=== PATIENT | female | born 1955 | race Caucasian/White ===

== ENCOUNTER 2018-06-29 06:13 | Day surgery (SDC) | payer MEDICAID ==
[~2018-06-29] VITALS: Ht 147.3 cm; Wt 31.6 kg
--- NOTE | ~2018-06-29 | OP ---
PATIENT NAME: EVELIA TOBIAS MEDICAL RECORD: [id number] :51 LOCATION:[facility] ADMISSION DATE: SURGEON: RACHAEL ASTORGA DO DATE OF OPERATION: 06/29/2018 PROCEDURE: Colonoscopy with biopsies. INDICATIONS FOR PROCEDURE: Family history positive for colon cancer in her mother and personal history of weight loss. SCOPE: Olympus video pediatric colonoscope. MEDICATIONS: Propofol 350 mg IV per anesthesia. WITHDRAWAL TIME: 22 minutes. ESTIMATED BLOOD LOSS: Minimal. COMPLICATIONS: None. FINDINGS: Informed consent was given. The patient was made comfortable with the above medication. After reaching an adequate level of sedation by slow IV push, the patient was placed on her left side. A digital rectal examination was performed and was normal. The endoscope was then advanced under direct visualization through the rectum to the cecum, confirmed by the presence of the appendiceal orifice and ileocecal valve. The endoscope was slowly withdrawn and the mucosa was carefully examined. The prep quality was good. There were no polyps visualized on today's examination. There was some nonspecific colitis located in the splenic flexure and the hepatic flexure. This was characterized by minor loss in vascularity pattern and by a few superficial ulcerations in both of these sites. There was no active bleeding, but there was some oozing from ulcers after being contacted by the endoscope with a water jet. Multiple cold forceps biopsies were taken of these ulcers from these sites to submit for histopathology. Appearances are most consistent with minimal ischemic colitis. Retroflexion was performed in the rectum with visualization of grade I internal hemorrhoids without bleeding. The endoscope was withdrawn from the patient. The patient tolerated the procedure well and there were no complications. IMPRESSION: 1. Very mild colitis located at the splenic flexure and the hepatic flexure. Appearances and locations are most consistent with minimal ischemic colitis. This also fits with the patient's history of circulatory disease. 2. Internal hemorrhoids without bleeding. PLAN AND RECOMMENDATIONS: 1. Discharge home when recovery parameters are met. 2. Follow up biopsy specimen results. 3. High fiber diet. 4. Continue current medications. 5. If this is ischemic colitis, there is no specific treatment other than treating risk factors such as dyslipidemia and abnormal blood pressures. The patient should stay hydrated. I do recommend a high fiber diet and consider supplementing diet with 1 tablespoon of Metamucil or another psyllium husk fiber daily to facilitate regular bowel movements and lubricate stools. 6. Recall colonoscopy should be performed in 5 years based on family history of OPERATIVE REPORT [id number] EVELIA TOBIAS colon cancer in the patient's mother. TRANSINT:[id number] Voice Confirmation ID: [id number] DOCUMENT ID: [id number] RACHAEL ASTORGA DO at 0721 CC: [id number] DICTATION DATE: 06/29/18909 JAVA DESIGNER: 06/29/18 1044 [facility] 06/29/18 [facility] [address] [place] [address]
[2018-06-29 06:43] LABS: HEMATOCRIT 47.5 % (36.0-48.0); HEMOGLOBIN 17.5 g/dL (12-16); MCH 37.8 pg (26.0-34.0); MCHC 36.8 g/dL (31.0-37.0); MCV 102.6 fL (80.0-100.0); MEAN PLATELET VOLUME 8.8 fL (7.4-10.4); RBC 4.63 10x6/uL (4.00-5.40); RDW 13.1 % (11.5-14.5); WBC 9.2 10x3/uL (4.8-10.8)
[2018-06-29] MEDS ORDERED: NORVASC10 MG PO (07:16)
[2018-06-29] MEDS ORDERED: PLAVIX75 MG PO (07:17)
[2018-06-29] MEDS ORDERED: KLOR-CON 1010 MEQ PO (07:18)
[2018-06-29] MEDS ORDERED: SEEBRI NEOHA15.6 MCG INH (07:20)
[2018-06-29] MEDS ORDERED: PROAIR HFA8.5 GM INH (07:21)
[2018-06-29] MEDS ORDERED: K-DUR20 MEQ PO (07:21)
[2018-06-29 07:35] VITALS: Ht 147.3 cm; Wt 31.6 kg
== END 2018-06-29 10:05 | disposition home or self-care (01) ==
LOC: D.OPS 06:13
PROVIDERS: Anesthesiology
DX: K52.89 Other specified noninfective gastroenteritis and colitis (principal); K63.89 Other specified diseases of intestine; Z01.812 Encounter for preprocedural laboratory examination; Z80.0 Family history of malignant neoplasm of digestive organs

== ENCOUNTER 2018-08-01 05:34 | Day surgery (SDC) | payer MEDICARE ==
[~2018-08-01] VITALS: Ht 147.3 cm; Wt 31.8 kg
--- NOTE | ~2018-08-01 | OP ---
PATIENT NAME: EVELIA TOBIAS MEDICAL RECORD: [id number] :51 LOCATION:[facility] ADMISSION DATE: SURGEON: RACHAEL ASTORGA DO DATE OF OPERATION: 08/01/2018 PROCEDURE: EGD with balloon dilation and biopsies. INDICATIONS FOR PROCEDURE: Epigastric pain, nausea and vomiting, abnormal weight loss. SCOPE: Olympus video gastroscope. MEDICATIONS: Propofol 150 mg IV per anesthesia. ESTIMATED BLOOD LOSS: Minimal. COMPLICATIONS: None. FINDINGS: Informed consent was given. The patient was made comfortable with the above medication. After reaching an adequate level of sedation by slow IV push, the patient was placed on her left side. The endoscope was advanced under direct visualization through the mouth to the third portion of the duodenum with ease. The upper, middle, and lower thirds of the esophagus appeared normal. At the GE junction, there was a mild, nonobstructing Schatzki ring, which was dilated to 20 mm using a CRE balloon through the endoscope. The endoscope was advanced beyond the GE junction into the stomach and retroflexed to view the cardia, where a very small sliding hiatal hernia was present. The fundus and body of the stomach appeared normal. In the antrum and prepyloric regions of the stomach, there was patchy erythema and granularity consistent with gastritis. Random biopsies were taken to submit for histology and to rule out the presence of H. pylori. The endoscope was advanced beyond the pylorus into the duodenal bulb. It was passed down to the third portion of the duodenum. The entire examined duodenum appeared normal, but small cold forceps biopsies were taken randomly to submit for histopathology. The endoscope was then withdrawn from the patient. The patient tolerated the procedure well and there were no complications. IMPRESSION: 1. Mild, nonobstructing Schatzki ring located at the GE junction. This was dilated to 20 mm successfully using a CRE balloon. 2. Small sliding hiatal hernia. 3. Gastritis. Biopsies pending. PLAN AND RECOMMENDATIONS: 1. Discharge home when recovery parameters are met. 2. Follow up biopsy specimen results. 3. Continue current diet. 4. Continue current medications. 5. We will add Pepcid 40 mg daily times 8 weeks. 6. Gastric emptying scan to evaluate her symptoms including nausea, vomiting, epigastric pain provoked with eating, and feeling full easily. TRANSINT:[id number] Voice Confirmation ID: [id number] DOCUMENT ID: [id number] OPERATIVE REPORT [id number] EVELIA TOBIAS NATHAN A DO at 0816 CC: [id number] DICTATION DATE: 08/01/18 0804 AUTO REPAIR TECHNICIAN: 08/01/18 1245 [facility] 08/01/18 [place] [id number] [place] [id number]
[~2018-08-01 05:34] MED LIST: K-DUR20 MEQ PO; KLOR-CON 1010 MEQ PO; NORVASC10 MG PO; PLAVIX75 MG PO; PROAIR HFA8.5 GM INH; SEEBRI NEOHA15.6 MCG INH
[2018-08-01 06:03] LABS: BASOPHILS 0.2 % (0-2); EOSINOPHILS 1.1 % (0-7); HEMATOCRIT 43.5 % (36.0-48.0); HEMOGLOBIN 15.9 g/dL (12-16); IMMATURE GRANULOCYTES 0.6 % (0-5); LYMPHOCYTES 25.3 % (15-50); MCH 37.3 pg (26.0-34.0); MCHC 36.6 g/dL (31.0-37.0); MCV 102.1 fL (80.0-100.0); MEAN PLATELET VOLUME 8.4 fL (7.4-10.4); MONOCYTES 11.1 % (2-11); NEUTROPHILS 61.7 % (40-80); PLATELET COUNT 387 10x3/uL (130-400); RBC 4.26 10x6/uL (4.00-5.40); RDW 13.3 % (11.5-14.5); WBC 10.1 10x3/uL (4.8-10.8)
[2018-08-01 06:17] LABS: CALC OSMOLALITY 273 mosm/kg (275-300); CALCIUM 8.9 mg/dL (8.5-10.1); CARBON DIOXIDE 30.3 mmol/L (21.0-32.0); CHLORIDE - SERUM 99 mmol/L (98-107); CREATININE - SERUM 0.5 mg/dL (0.6-1.3); GLUCOSE 96 mg/dL (74-106); POTASSIUM - SERUM 3.3 mmol/L (3.5-5.1); SODIUM 137 mmol/L (136-145); UREA NITROGEN 13 mg/dL (7-18); eGFR NON AFRICAN AMERICAN > 90 mL/min (90-120)
[2018-08-01 06:35] VITALS: Ht 147.3 cm; Wt 31.8 kg
== END 2018-08-01 08:55 | disposition home or self-care (01) ==
LOC: D.OPS 05:34
PROVIDERS: Anesthesiology
DX: K22.2 Esophageal obstruction (principal); K44.9 Diaphragmatic hernia without obstruction or gangrene; K29.70 Gastritis, unspecified, without bleeding; Z01.812 Encounter for preprocedural laboratory examination

== ENCOUNTER → 2018-08-05 10:58 | Outpatient (CLI) | payer MEDICARE ==
[2018-08-01 06:35] VITALS: BMI 14.6
== END | disposition home or self-care (01) ==
LOC: D.NM 10:58
DX: R11.2 Nausea with vomiting, unspecified (principal); R10.13 Epigastric pain

== ENCOUNTER 2018-12-07 21:16 | Inpatient (IN) | payer MEDICARE ==
[~2018-12-07] VITALS: Ht 147.3 cm; Wt 31.8 kg
[2018-12-07] MEDS ORDERED: PEPCID AC20 MG PO (21:26)
[2018-12-07 22:18] LABS: BASOPHILS 0.2 % (0-2); EOSINOPHILS 0.9 % (0-7); HEMATOCRIT 27.7 % (36.0-48.0); HEMOGLOBIN 9.4 g/dL (12-16); IMMATURE GRANULOCYTES 0.5 % (0-5); LYMPHOCYTES 26.1 % (15-50); MCH 35.7 pg (26.0-34.0); MCHC 33.9 g/dL (31.0-37.0); MCV 105.3 fL (80.0-100.0); MEAN PLATELET VOLUME 8.5 fL (7.4-10.4); NEUTROPHILS 61.3 % (40-80); RBC 2.63 10x6/uL (4.00-5.40); WBC 6.5 10x3/uL (4.8-10.8)
[2018-12-07 22:23] LABS: APTT 24.8 SECONDS (22.8-39.4); INR 1.03 (0.85-1.17)
[2018-12-07 22:34] LABS: ALBUMIN 2.9 g/dL (3.4-5.0); ALKALINE PHOSPHATASE 51 U/L (46-116); ALT (SGPT) 26 U/L (10-68); AMYLASE - SERUM 21 U/L (25-115); BILIRUBIN - TOTAL 0.28 mg/dL (0.2-1.3); CALCIUM 7.9 mg/dL (8.5-10.1); CARBON DIOXIDE 24.3 mmol/L (21.0-32.0); CHLORIDE - SERUM 100 mmol/L (98-107); CREATININE - SERUM 0.3 mg/dL (0.6-1.3); LIPASE 105 U/L (73-393); PROTEIN - SERUM 5.9 g/dL (6.4-8.2); SODIUM 139 mmol/L (136-145); UREA NITROGEN 6 mg/dL (7-18); eGFR NON AFRICAN AMERICAN > 90 mL/min (90-120)
[2018-12-07 22:36] LABS: PLATELET COUNT 286 10x3/uL (130-400)
[2018-12-07 22:37] LABS: CALC OSMOLALITY 273 mosm/kg (275-300); GLUCOSE 55 mg/dL (74-106)
[2018-12-07 22:38] LABS: POTASSIUM - SERUM 2.9 mmol/L (3.5-5.1)
--- NOTE | 2018-12-07 23:43 | NUR ---
[place] STOP TIME 5334 WHEN PT TRANSFERED TO ICU
[2018-12-08] VITALS (22 sets, daily range): BP systolic 113–140; BP diastolic 50–78; Ht 147.3 cm; Wt 31.8 kg
--- NOTE | 2018-12-08 00:45 | NUR ---
DR. ASTORGA NOTIFIED OF CONSULT, QUESTIONS ANSWERED AND ORDERS REC'D.
--- NOTE | 2018-12-08 01:00 | NUR ---
CONTINUES RESTING WITH EYES CLOSED. NO SIGNS OF DISTRESS AT THIS TIME. CONTINUE WITH PLAN OF CARE.
--- NOTE | 2018-12-08 03:00 | NUR ---
UP TO BEDSIDE COMMODE.VOIDED DARK YELLOW URINE. DENIES ANY COMPLAINT AT THIS TIME. CALL LIGHT IN REACH.
--- NOTE | 2018-12-08 04:23 | NUR ---
UP TO BEDSIDE COMMODE WITH MINIMAL ASSITANCE, VSS. DENIES FURTHER NEEDS AT THIS TIME. CPOC.
[2018-12-08 04:39] LABS: BASOPHILS 0.2 % (0-2); EOSINOPHILS 0.9 % (0-7); HEMATOCRIT 24.5 % (36.0-48.0); HEMOGLOBIN 8.5 g/dL (12-16); IMMATURE GRANULOCYTES 0.4 % (0-5); LYMPHOCYTES 28.4 % (15-50); MCH 36.5 pg (26.0-34.0); MCHC 34.7 g/dL (31.0-37.0); MCV 105.2 fL (80.0-100.0); MEAN PLATELET VOLUME 8.6 fL (7.4-10.4); MONOCYTES 11.7 % (2-11); NEUTROPHILS 58.4 % (40-80); PLATELET COUNT 263 10x3/uL (130-400); RBC 2.33 10x6/uL (4.00-5.40); RDW 12.9 % (11.5-14.5); WBC 5.4 10x3/uL (4.8-10.8)
--- NOTE | 2018-12-08 05:00 | NUR ---
PRBC INFUSION INITIATED, NO S/S OF REACTION. VSS, PT AOX4, WITH NO COMPLAINTS AT THIS TIME. REPOSITIONS SELF INDEPENDENTLY. DENIES NEEDS. CPOC.
--- NOTE | 2018-12-08 05:00 | NUR ---
AWAKE AND ALERT. SITTING UP IN BED WATCHING TV. DENIES ANY COMPLAINTS AT THIS TIME. NO SIGNS OF DISTRESS OBSERVED AT THIS TIME. CONTINUE WITH PLAN OF CARE.
[2018-12-08 05:06] LABS: ALKALINE PHOSPHATASE 47 U/L (46-116); ALT (SGPT) 20 U/L (10-68); BILIRUBIN - TOTAL 0.26 mg/dL (0.2-1.3); CALCIUM 7.4 mg/dL (8.5-10.1); CARBON DIOXIDE 21.2 mmol/L (21.0-32.0); CHLORIDE - SERUM 101 mmol/L (98-107); CREATININE - SERUM 0.3 mg/dL (0.6-1.3); PROTEIN - SERUM 5.3 g/dL (6.4-8.2); SODIUM 138 mmol/L (136-145); UREA NITROGEN 5 mg/dL (7-18); eGFR NON AFRICAN AMERICAN > 90 mL/min (90-120)
[2018-12-08 05:12] LABS: ALBUMIN 2.5 g/dL (3.4-5.0)
[2018-12-08 05:23] LABS: CALC OSMOLALITY 269 mosm/kg (275-300); GLUCOSE 49 mg/dL (74-106)
[2018-12-08 05:24] LABS: POTASSIUM - SERUM 2.7 mmol/L (3.5-5.1)
--- NOTE | 2018-12-08 07:00 | NUR ---
AWAKE AND ALERT. SITTING UP IN BED, WATCHING TV. DENIES COMPLAINT AT THIS TIME. NO SIGNS OF DISTRESS OBSERVED. CONTINUE WITH PLAN OF CARE.
--- NOTE | 2018-12-08 07:00 | NUR ---
PATIENT RESTING STABLE IN BED WITH PRBC CURRENTLY INFUSING AT 150ML/HR VIA LEFT WRIST AND PROTONIX DRIP VIA RIGHT WRIST PIV. LUNG DONOVAN CLEAR. NSR. VSS. PATIENT AWAKE ALERT AND ORIENTED X 4. 1ST BAG OF KCL RIDER 10 MEQ INFUSION COMPLETED. WILL CONTINUE TO MONITOR
--- NOTE | 2018-12-08 08:13 | NUR ---
SPOKE TO DR. FRAZIER ON PHONE ABOUT kCL LEVEL. STATED IT IS OKAY TO GIVE PO K+ SINCE SHE CANT HANDLE THE IV kCL RIDER ANY FASTER THAN 25ML/HR AND NEEDS 6 BAGS.
--- NOTE | 2018-12-08 08:16 | NUR ---
BLOOD TRANSFUSION COMPLETED AT THIS TIME. VSS.
--- NOTE | 2018-12-08 09:15 | NUR ---
ADMINISTERED 20 MEQ KDUR TABLET FOR LOW K+ PER PROTOCOL AND SCHEDULED KDUR TABLET WELL NORVASC SINCE DR. FRAZIER SAID OKAY TO REPLACE k+ ORALLY ON NPO STATUS. BG IS LOW 49 THIS MORNING. GAVE 3 PACKS SUGAR IN WATER WITH PILLS
--- NOTE | 2018-12-08 10:05 | NUR ---
OBTAINED CONSENT FORMS FOR EGD LATER TODAY. ALLOWED FAMILY TO COME IN AND VISIT WITH PATIENT.
--- NOTE | 2018-12-08 12:00 | NUR ---
PATIENT RESTING IN BED C STABLE VS. NO COMPLAINTS.
--- NOTE | 2018-12-08 13:33 | NUR ---
PATIENT AMBULATING UP AND DOWN UNIT PULLING IV POLE WITH HER.
--- NOTE | 2018-12-08 14:02 | NUR ---
OBTAINED CONSENT FOR ANESTHESIA. PT IS STABLE.
--- NOTE | 2018-12-08 16:00 | NUR ---
EGD BY DR. FRAZIER COMPLETED AT THIS TIME. 150 MCG PROPOFOL USED FOR ANESTHESIA. FINDINGS WERE 2 GASTRIC ULCERS MILDLY BLEEDING WHICH WERE INJECTED WITH 1/2 ML EPINEPHRINE EACH. PATIENT RECOVERED WITH STABLE VS AND IS AWAKE AND ALERT. WILL CONTINUE TO MONITOR
--- NOTE | 2018-12-08 17:03 | NUR ---
CALLED DIETARY FOR CLEAR LIQUID DIET TRAY FOR PATIENT.
--- NOTE | 2018-12-08 19:00 | NUR ---
AWAKE AND ALERT. SITTING UP IN BED WATCHING TV. IV RT WRIST INFILTRATED, REDDENED, PAINFUL TO TOUCH, UNABLE TO FLUSH. IV RT WRIST DISCONTINUED AT THIS TIME WITH CATHETER INTACT, PRESSURE HELD, DRSG APPLIED. DENIES ANY FURTHER COMPLAINTS AT THIS TIME.
--- NOTE | 2018-12-08 21:00 | NUR ---
AWAKE AND ALERT. SITTING UP IN BED WATCHING TV. DENIES PAIN OR DISCOMFORT. CONTINUE PLAN OF CARE
--- NOTE | 2018-12-08 23:00 | NUR ---
RESTING WITH EYES CLOSED. CONTINUE WITH PLAN OF CARE.
[2018-12-09] VITALS (18 sets, daily range): BP systolic 115–163; BP diastolic 55–85
[2018-12-09 03:23] LABS: BASOPHILS 0.2 % (0-2); EOSINOPHILS 1.7 % (0-7); IMMATURE GRANULOCYTES 0.2 % (0-5); LYMPHOCYTES 26.1 % (15-50); MCH 33.8 pg (26.0-34.0); MCHC 34.8 g/dL (31.0-37.0); MEAN PLATELET VOLUME 8.5 fL (7.4-10.4); MONOCYTES 14.7 % (2-11); NEUTROPHILS 57.1 % (40-80); PLATELET COUNT 247 10x3/uL (130-400); RDW 18.5 % (11.5-14.5); WBC 5.4 10x3/uL (4.8-10.8)
[2018-12-09 03:26] LABS: HEMATOCRIT 32.8 % (36.0-48.0); HEMOGLOBIN 11.4 g/dL (12-16); MCV 97.3 fL (80.0-100.0); RBC 3.37 10x6/uL (4.00-5.40)
[2018-12-09 03:41] LABS: ALBUMIN 2.5 g/dL (3.4-5.0); ALKALINE PHOSPHATASE 46 U/L (46-116); CALCIUM 7.7 mg/dL (8.5-10.1); CARBON DIOXIDE 23.7 mmol/L (21.0-32.0); CHLORIDE - SERUM 101 mmol/L (98-107); CREATININE - SERUM 0.3 mg/dL (0.6-1.3); MAGNESIUM - SERUM 1.1 mg/dL (1.8-2.4); PROTEIN - SERUM 5.4 g/dL (6.4-8.2); SODIUM 136 mmol/L (136-145); eGFR NON AFRICAN AMERICAN > 90 mL/min (90-120)
[2018-12-09 03:44] LABS: ALT (SGPT) 26 U/L (10-68); CALC OSMOLALITY 265 mosm/kg (275-300); GLUCOSE 66 mg/dL (74-106); UREA NITROGEN 1 mg/dL (7-18)
--- NOTE | 2018-12-09 07:00 | NUR ---
PATIENT RESTING IN BED C CALL ARTEAGA IN REACH. NS INFUSING AT 125, BUMPED DOWN TO 75 SINCE NO LONGER NPO AND LOW BUN/CR. NO COMPLAINTS OF PAIN. VSS. WILL CONTINUE TO MONITOR
--- NOTE | 2018-12-09 09:00 | NUR ---
PT RESTING INB ED AWAKE ALERT AND ORIENTED. CHANGED PINK PAD PER REQUEST. NS INFUSING AT 75ML/HR VIA LEFT WRIST. WILL CONTINUE TO MONITOR
[2018-12-09 09:13] LABS: HEMATOCRIT 30.8 % (36.0-48.0); HEMOGLOBIN 10.9 g/dL (12-16)
--- NOTE | 2018-12-09 09:50 | NUR ---
PATIENT HAD LOOSE BLACK BM ON BSC. CLEANED SELF. NURSE EMPTIED BASIN. WILL REPORT MELENA TO DR. FRAZIER.
--- NOTE | 2018-12-09 11:30 | NUR ---
PATIENT HAD ANOTHER LOOSE DARK BM--COFFE GROUND LOOKING. VSS. NO COMPLAINTS. ADMINISTERED SECOND OF 4 MAGNESIUM DOSES FOR ELECTROLYTE REPLACEMENT PROTOCOL.
[2018-12-09 12:46] LABS: HEMATOCRIT 36.9 % (36.0-48.0); HEMOGLOBIN 13.1 g/dL (12-16)
--- NOTE | 2018-12-09 13:12 | NUR ---
CALLED DR. CLAIRE SCHULTZ ABOUT POTENTIAL TRANSFER. NO ANSWER OR VOICEMAIL BOX
[2018-12-09 16:10] LABS: HEMATOCRIT 34.2 % (36.0-48.0)
--- NOTE | 2018-12-09 16:15 | NUR ---
ADMINISTERED PRN IMMODIUM AND 3RD OF 4 DOSES OF MAGNESIUM PER ELEC PROTOCOL. REPORT GIVEN TO CHARLOTTE SQUIRES ON [facility] FOR TRANSFER.
--- NOTE | 2018-12-09 16:15 | NUR ---
RECEIVED TO ROOM 2203 VIA FROM ICU. A/O X3. NO C/O AT THIS TIME. DENIES NEEDS.
--- NOTE | 2018-12-09 16:30 | NUR ---
PATIENT TAKEN DOWN TO 2203 VIA WHEEL CHAIR AND HANDED OFF TO CHARLOTTE SQUIRES.
--- NOTE | 2018-12-09 16:33 | NUR ---
admnistered prn immodium and 3rd dose of magnesium per elec protocol. also gave report to Shelly PORTER on med surge for transfer orders.
--- NOTE | 2018-12-09 19:42 | MORECARE ---
CASE MANAGEMENT DISCHARGE SUMMARY PATIENT: EVELIA TOBIAS UNIT: [id number] ADM DATE: 12/07/18 AGE: 63 : 53 SEX: F ROOM/BED: D.2203 AUTHOR: HORACE,DOC PHYSICIAN: REFERRING PHYSICIAN: ARGELIA SAENZ MD DATE OF SERVICE: 12/09/18 Discharge Plan Patient Name: EVELIA TOBIAS Facility: [facility]:[place] : 1955 Planned Disposition: Home Anticipated Discharge Date: Discharge Date: Expected LOS: Initial Reviewer: [email or web address] Initial Review Date: 12/09/2018 Generated: 12/09/18 8:42 pm Comments DCP- Discharge Planning Updated by [email or web address]: Alyssa Roca on 12/09/18 6:[address] Patient Name: EVELIA TOBIAS Admission Status: ER Accout number: [id number] Admission Date: 12-07-2018 : 1955 Admission Diagnosis:GASTROINTESTINAL HEMORRHAGE, UNSPECIFIED Attending: ARGELIA SAENZ Current LOS: 2 Anticipated DC Date: Planned Disposition: Home Primary Insurance: MEDICARE A & B Discharge Planning Comments: CM met with patient at bedside. Patient states she live at home with her brother and son. She plans to return to their home upon discharge. Patient denies any discharge needs at this time. CM will continue to follow and assist as needed with discharge planning / needs. Rural Route Carrier: Alyssa Roca DCPIA - Discharge Planning Initial Assessment Updated by [email or web address]: Alyssa Roca on 12/09/18 7:40 pm * Is the patient Alert and Oriented? Yes * How many steps to enter\exit or inside your home? * PCP MARIA EUGENIA TONY * Pharmacy [facility] * Preadmission Environment Home with Family * ADLs Independent * Equipment None * List name and contact numbers for known caregivers / representatives who currently or will assist patient after discharge: MARLENE PRADO - - [phone] * Verbal permission to speak to the caregivers and representatives has been obtained from the patient. N/A * Community resources currently utilized None * Additional services required to return to the preadmission environment? No * Can the patient safely return to the preadmission environment? Yes * Has this patient been hospitalized within the prior 30 days at any hospital? No Patient Name: JATINDER JANUARY Page [id number] at 1942 All edits/amendments must be made on the electronic document DICTATION DATE: 12/09/181940 DIE CASTER: JOHANNA 12/09/181940 RPT#: [id number] DC DATE: STATUS: ADM IN [facility] [address] [place] [address] END OF REPORT
--- NOTE | 2018-12-09 19:50 | NUR ---
THE PATIENT WAS LYING IN BED AND WATCHING TELEVISION WHEN STAFF ENTERED HER ROOM. BED IN LOW POSITION WITH SIDERAILS X2 AND CALL LIGHT WITHIN REACH. THE PATIENT DEMONSTRATES APPROPRIATE USE OF A CALLL LIGHT. THE PATIENT APPEARS COMFORTABLE WITH NO QUESTIONS OR COCNERNS AT THIS TIME.
[2018-12-09 19:56] LABS: HEMATOCRIT 34.3 % (36.0-48.0); HEMOGLOBIN 12.1 g/dL (12-16)
--- NOTE | 2018-12-10 02:28 | NUR ---
THE PATIENT IS AWAKE QAND WATCHING TELEVISION. SHE APPEARS COMFORTABLE AND AHS NO QUESTIONS OR CONCERNS.
[2018-12-10 04:00] VITALS: BP 106/59
[2018-12-10 06:09] LABS: BASOPHILS 0.2 % (0-2); EOSINOPHILS 1.7 % (0-7); HEMATOCRIT 34.2 % (36.0-48.0); HEMOGLOBIN 11.7 g/dL (12-16); IMMATURE GRANULOCYTES 0.4 % (0-5); LYMPHOCYTES 27.7 % (15-50); MCH 33.8 pg (26.0-34.0); MCHC 34.2 g/dL (31.0-37.0); MCV 98.8 fL (80.0-100.0); MONOCYTES 14.2 % (2-11); NEUTROPHILS 55.8 % (40-80); PLATELET COUNT 289 10x3/uL (130-400); RBC 3.46 10x6/uL (4.00-5.40); RDW 18.1 % (11.5-14.5); WBC 5.4 10x3/uL (4.8-10.8)
[2018-12-10 06:46] LABS: ALBUMIN 2.5 g/dL (3.4-5.0); ALKALINE PHOSPHATASE 50 U/L (46-116); ALT (SGPT) 21 U/L (10-68); BILIRUBIN - TOTAL 0.25 mg/dL (0.2-1.3); CARBON DIOXIDE 27.1 mmol/L (21.0-32.0); CHLORIDE - SERUM 101 mmol/L (98-107); GLUCOSE 96 mg/dL (74-106); PROTEIN - SERUM 5.6 g/dL (6.4-8.2); SODIUM 137 mmol/L (136-145)
[2018-12-10 06:51] LABS: CALC OSMOLALITY 269 mosm/kg (275-300); CREATININE - SERUM 0.4 mg/dL (0.6-1.3); MAGNESIUM - SERUM 1.5 mg/dL (1.8-2.4); UREA NITROGEN 2 mg/dL (7-18)
[2018-12-10 06:52] LABS: eGFR NON AFRICAN AMERICAN > 90 mL/min (90-120)
[2018-12-10 06:53] LABS: POTASSIUM - SERUM 2.7 mmol/L (3.5-5.1)
[2018-12-10 08:23] LABS: HEMATOCRIT 32.4 % (36.0-48.0); HEMOGLOBIN 11.3 g/dL (12-16)
[2018-12-10 08:29] LABS: ANION GAP 9.3 mmol/L (8-16); CARBON DIOXIDE 30.7 mmol/L (21.0-32.0)
[2018-12-10 08:39] VITALS: BP 142/75
[2018-12-10 12:00] VITALS: BP 128/73
[2018-12-10 12:56] LABS: HEMATOCRIT 35.2 % (36.0-48.0); HEMOGLOBIN 12.2 g/dL (12-16)
[2018-12-10] MEDS ORDERED: CARAFATE1 G PO (13:48)
[2018-12-10] MEDS ORDERED: FLORAJEN3 CAPS460 MG PO (13:48)
[2018-12-10] MEDS ORDERED: LOPERAMIDE HCL2 MG PO (13:49)
[2018-12-10] MEDS ORDERED: PROTONIX40 MG PO (13:49)
[2018-12-10 16:00] VITALS: BP 146/71
--- NOTE | 2018-12-10 18:01 | NUR ---
PATIENT IV DC/D WITH DISCHARGE INSTRUCTIONS GIVEN AND MEDICATIONS CALLED TO [facility]. STABLE AT TIME OF DEPARTURE AND VERBALIZED UNDERSTANDING OF DISCHAGE INSTRUCTIONS.
--- NOTE | 2018-12-12 11:59 | MORECARE ---
CASE MANAGEMENT DISCHARGE SUMMARY PATIENT: EVELIA TOBIAS UNIT: [id number] ADM DATE: 12/07/18 AGE: 63 : 53 SEX: F ROOM/BED: D.2203 AUTHOR: HORACE,DOC PHYSICIAN: REFERRING PHYSICIAN: ARGELIA SAENZ MD DATE OF SERVICE: 12/12/18 Discharge Plan Patient Name: EVELIA TOBIAS Facility: [facility]:[place] : 1955 Planned Disposition: Home Anticipated Discharge Date: Discharge Date: 12/10/2018 Expected LOS: 0 Initial Reviewer: [email or web address] Initial Review Date: 12/09/2018 Generated: 12/12/18 12:59 pm Comments DCP- Discharge Planning Updated by [email or web address]: Alyssa Roca on 12/09/18 6:[address] Patient Name: EVELIA TOBIAS Admission Status: ER Accout number: [id number] Admission Date: 12-07-2018 : 1955 Admission Diagnosis:GASTROINTESTINAL HEMORRHAGE, UNSPECIFIED Attending: ARGELIA SAENZ Current LOS: 2 Anticipated DC Date: Planned Disposition: Home Primary Insurance: MEDICARE A & B Discharge Planning Comments: CM met with patient at bedside. Patient states she live at home with her brother and son. She plans to return to their home upon discharge. Patient denies any discharge needs at this time. CM will continue to follow and assist as needed with discharge planning / needs. Streetcar Dispatcher: Alyssa Roca DCPIA - Discharge Planning Initial Assessment Updated by [email or web address]: Alyssa Roca on 12/09/18 7:40 pm * Is the patient Alert and Oriented? Yes * How many steps to enter\exit or inside your home? * PCP MARIA EUGENIA TONY * Pharmacy [facility] * Preadmission Environment Home with Family * ADLs Independent * Equipment None * List name and contact numbers for known caregivers / representatives who currently or will assist patient after discharge: MARLENE PRADO - - [phone] * Verbal permission to speak to the caregivers and representatives has been obtained from the patient. N/A * Community resources currently utilized None * Additional services required to return to the preadmission environment? No * Can the patient safely return to the preadmission environment? Yes * Has this patient been hospitalized within the prior 30 days at any hospital? No Last DP export: 12/09/18 6:42 pm Patient Name: JATINDER JANUARY Page [phone] at 1159 All edits/amendments must be made on the electronic document DICTATION DATE: 12/12/181158 VETERINARY TECHNICIAN ASSISTANT: JOHANNA 12/12/18 1159 RPT#: [id number] DC DATE:12/10/18 STATUS: DIS IN [facility] [address] [place] [address] END OF REPORT
== END 2018-12-10 18:03 | disposition home or self-care (01) | DRG 377 ==
LOC: D.ER 21:16 → D.ICU 22:02 → D.MS 22:02
PROVIDERS: Family Medicine; Internal Medicine Gastroenterology; ADMIT Family Medicine
PROC: 0W3P8ZZ Control Bleeding in Gastrointestinal Tract, Via Natural or Artificial Opening Endoscopic (ICD-10-PCS; principal; 2018-12-08 16:15)
DX: K25.4 Chronic or unspecified gastric ulcer with hemorrhage (principal); E43 Unspecified severe protein-calorie malnutrition; D62 Acute posthemorrhagic anemia; N39.0 Urinary tract infection, site not specified; Z68.1 Body mass index [BMI] 19.9 or less, adult; J44.9 Chronic obstructive pulmonary disease, unspecified; I10 Essential (primary) hypertension; I73.9 Peripheral vascular disease, unspecified; E87.6 Hypokalemia; F17.200 Nicotine dependence, unspecified, uncomplicated

== ENCOUNTER 2019-08-29 14:23 | Inpatient (IN) | payer MEDICARE ==
[~2019-08-29] VITALS: Ht 147.3 cm; Wt 26.7 kg
[~2019-08-29 14:23] MED LIST changes: +CARAFATE1 G PO; +FLORAJEN3 CAPS460 MG PO; +LOPERAMIDE HCL2 MG PO; +PEPCID AC20 MG PO; +PROTONIX40 MG PO
[2019-08-29] MEDS ORDERED: BAYER CHEWABLE81 MG PO (18:09)
[2019-08-29] MEDS ORDERED: LANOXIN125 MCG PO (18:10)
[2019-08-29] MEDS ORDERED: VITAMIN B-121000 MCG PO (18:10)
[2019-08-29] MEDS ORDERED: CARDIZEM CD300 MG PO (18:11)
[2019-08-29] MEDS ORDERED: LOVASTATIN20 MG PO (18:11)
[2019-08-29] MEDS ORDERED: PROTONIX40 MG PO (18:12)
[2019-08-29] MEDS ORDERED: CHANTIX0.5 MG PO (18:12)
[2019-08-29] MEDS ORDERED: K-DUR20 MEQ PO (18:12)
[2019-08-29] MEDS ORDERED: VITAMIN D2000 UNIT PO (18:17)
--- NOTE | 2019-08-29 20:00 | NUR ---
PATIENT RECEIVED SITTING UP IN BED. VITAL SIGNS DONE. BED LOW. CALL LIGHT WITHIN REACH. WILL CONTINUE TO MONITOR.
--- NOTE | 2019-08-29 20:23 | NUR ---
PATIENT REFUSD RENAN. DID NOT TAKE AT OTHER HOSPITAL. TYLENOL 650 MG GIVEN FOR PAIN LEVEL 5. CALL LIGHT WITHIN REACH. WILL CONTINUE TO MONITOR.
[2019-08-29 21:05] VITALS: BP 169/70
[2019-08-29 22:36] VITALS: BP 169/70; BMI 14.2
--- NOTE | 2019-08-30 04:17 | NUR ---
PATIENT EYES CLOSED. RESPIRATIONS 18 & EVEN. BED LOW. CALL LIGHT WITHIN REACH. WILL CONTINUE TO MONITOR.
[2019-08-30 06:13] LABS: BASOPHILS 0.3 % (0-2); EOSINOPHILS 9.2 % (0-7); HEMATOCRIT 32.5 % (36.0-48.0); HEMOGLOBIN 10.4 g/dL (12-16); IMMATURE GRANULOCYTES 0.4 % (0-5); LYMPHOCYTES 15.3 % (15-50); MONOCYTES 8.5 % (2-11); NEUTROPHILS 66.3 % (40-80); RBC 3.35 10x6/uL (4.00-5.40); WBC 7.7 10x3/uL (4.8-10.8)
[2019-08-30 06:31] LABS: PLATELET COUNT 512 10x3/uL (130-400)
[2019-08-30 07:28] LABS: CALC OSMOLALITY 281 mosm/kg (275-300); CALCIUM 9.2 mg/dL (8.5-10.1); CARBON DIOXIDE 26.1 mmol/L (21.0-32.0); CHLORIDE - SERUM 103 mmol/L (98-107); CREATININE - SERUM 0.4 mg/dL (0.6-1.3); GLUCOSE 95 mg/dL (74-106); POTASSIUM - SERUM 3.9 mmol/L (3.5-5.1); SODIUM 141 mmol/L (136-145); UREA NITROGEN 14 mg/dL (7-18); eGFR NON AFRICAN AMERICAN > 90 mL/min (90-120)
--- NOTE | 2019-08-30 07:54 | NUR ---
ALERT AND ORIENTED. EATING BREAKFAST. NO DISTRESS NOTED. CL IN REACH.
[2019-08-30 08:16] VITALS: BP 136/67
--- NOTE | 2019-08-30 13:41 | NUR ---
PARTICIPATED IN THERAPY THIS AM. RESTING AT THIS TIME WITH CL IN REACH.
[2019-08-30 15:07] VITALS: Ht 147.3 cm; Wt 26.7 kg
--- NOTE | 2019-08-30 20:00 | NUR ---
PATIENT RECEIVED LAYING IN BED. ASSESSMENT & VITAL SIGNS DONE. BED LOW. CALL LIGHT WITHIN REACH. WILL CONTINUE TO MONITOR.
--- NOTE | 2019-08-30 21:00 | NUR ---
PATIENT SPOKE WITH THIS NURSE ABOUT LEAVING. PATIENT TOLD THAT PATIENT HAS TO BE IN REHAB FOR 72 HOURS FOR INSURANCE TO PAY. PATIENT UNDERSTOOD. CALL LIGTH WITHIN REACH. WILL CONTINUE TO MONITOR.
[2019-08-30 21:20] VITALS: BP 150/61
--- NOTE | 2019-08-31 03:50 | NUR ---
PT LYING IN BED ON LEFT SIDE EYES CLOSED RESTING. RR EVEN AND UNLABORED. CL IN REACH
--- NOTE | 2019-08-31 04:27 | NUR ---
I have reviewed this patient and I concur with the Shift Assessment completed by the Licensed Practical Nurse today this shift.
[2019-08-31 08:00] VITALS: BP 188/91
--- NOTE | 2019-08-31 09:40 | NUR ---
PATIENT IS ALERT/ORIENT. HAS HAD THERAPY FOR FOURTY FIVE MINUTES. PATIENT TALKED TO SAMREEN. PATIENT TO BE DISCHARGED HOME TODAY
--- NOTE | 2019-08-31 11:19 | NUR ---
PATIENT DISCHARGING HOME TODAY WITH FAMILY. PATIENT HAS DECLINED TO REMAIN IN REHAB STATING "THIS IS NOT WHAT SHE WAS TOLD IT WAS". PATIENT HAS DECLINED HOME HEALTH AND ANY DME NEEDS AT THIS TIME. A COPY OF HER DISCHARGE PLAN FROM [facility] GIVEN TO PATIENT AND HER APPOINTMENTS. MATT ATKINS APRN 09/07/19 @ 3:00, HILDA BAUER 10/19/19 @ 9:00, DR. MARIA EUGENIA ACE 11/07/2019 @ 9:30. PATIENT CHOICE FORM (HAND OUT GIVEN ) AND IMFM FORMS SIGNED, COPY GIVEN TO PATIENT AND FILED IN CHART. DISCHARGE INSTRUCTIONS WITH MEDICATIONS FAXED TO PCP AND REVIEWED WITH PATIENT.
--- NOTE | 2019-08-31 13:23 | NUR ---
DISCHARGE INSTUCTIONS GONE OVER WITH PATIENT. DISCHARGE MEDICATIONS CALLED INTO [facility]. [facility].
--- NOTE | 2019-09-11 10:01 | RHP ---
PATIENT: EVELIA TOBIAS MEDICAL RECORD: [id number] ACCOUNT: [id number] LOCATION:[facility]1113 : 51 ADMISSION DATE: 08/29/19 REHABILITATION HISTORY AND PHYSICAL EXAMINATION POST ADMISSION PHYSICIAN EXAMINATION POST ADMISSION PHYSICAL EXAM AND HISTORY AND PHYSICAL DATE OF ADMISSION: 08/29/2019 ADMITTING DIAGNOSIS: Disuse myopathy. HISTORY OF PRESENT ILLNESS: The patient is a 64-year-old female patient admitted to the hospital for a small bowel obstruction with abdominal pain, nausea and vomiting. She was recently hospitalized for this. She has a history of severe peripheral arterial disease with recent stent placement, mesenteric ischemia. Recently, she has got hyperlipidemia, carotid disease and hypertension. The week prior to admit, she was having abdominal pain, severe, generalized, associated with nausea and vomiting. She had an NG tube placed upon admit to the hospital. 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 She has received 1 unit of blood transfusion on August 12. Cardiology was consulted for AFib with rapid ventricular response. She was started on a Cardizem drip and converted over to oral Cardizem. On August 28 transferred out of the ICU to the medical floor. She has got a history of age-related osteoporosis, arthritis, CVA, renal stones, carotid artery disease, hiatal hernia, renal stenosis, Schatzki's ring. She has got COPD. She has got a history of vascular disease, vertigo, tobacco use, THC use. She also has a history of obstructive sleep apnea. She currently is on telemetry. She was monitored closely with cardiac. Recent uncontrolled AFib, on Cardizem drip, changed over to p.o. meds on August 28. Hypertension is doing well at this time, but needing some adjustment. She is on supplemental O2, anticoagulation therapy due to her peripheral vascular disease and peripheral arterial disease. She has got severe protein malnutrition. We are monitoring for anemia, monitoring pain, deconditioning, proximal muscle weakness, debility. She is a high fall risk and self-care deficits. These are all barriers to her discharge home. She lives at home with her family and was independent with her mobility and ADLs. She is currently set up for mod assist for ADLs and mod assist for safety reasons for her mobility. She and her family plan for her to discharge home hopefully at her prior level of functioning or better if possible. Comorbidities include small bowel obstruction, tobacco use, peripheral arterial disease, essential hypertension, vascular disorder of the intestine, severe protein-calorie malnutrition, severe peripheral vascular disease. She has got a history of uncontrolled AFib. She has a history of respiratory failure, visceral vascular disease, multiple anticoagulants including Plavix and aspirin, anemia, tachycardia, anxiety, and agitation. PAST MEDICAL HISTORY: Significant for arthritis, back pain. She has had a DVT in the past, calculus of her kidneys, carotid artery disease. She has had multiple TIAs and CVA. She has got a hiatal hernia, heart murmur. She has had stenting of both of her kidneys, hypertension, hyperlipidemia, Schatzki's ring, COPD, stenosis of both carotids, vascular disease, vertigo, tobacco use, THC use, and obstructive sleep apnea. PAST SURGICAL HISTORY: Includes an EGD, appendectomy, breast lumpectomy. She has got a history of PTCA and carotid endarterectomy, , colonoscopy, HISTORY AND PHYSICAL [id number] TOBIAS stents placed in both kidneys, partial mastectomy, lumpectomy, jaw surgery, tonsillectomy, laparoscopic abdominal surgery, EGD, cholecystectomy, thrombo-arterectomy also in her neck. ALLERGIES: SULFA, LORAZEPAM, TRAMADOL, AND ATORVASTATIN. CURRENT MEDICATIONS: Include Mevacor 20 mg daily. She is on digoxin 0.125 mg daily, aspirin chewable 81 mg daily, Plavix 75 mg daily, vitamin D 2000 units daily, B12 at 1000 mcg daily, Cardizem 300 mg daily, potassium 40 mEq daily, Protonix 40 mg daily, Tylenol 650 every 6 hours p.r.n., and [facility]. HABITS: Does have a history of tobacco and THC use. FAMILY HISTORY: Noncontributory. SOCIAL HISTORY: The patient hopes to return back home and get back to her prior level of functioning. REVIEW OF SYSTEMS: GENERAL: Does complain of weakness and fatigue. HEENT: Denies cold, cough, or congestion. CARDIOVASCULAR: Denies any chest pain. PHYSICAL EXAMINATION: VITAL SIGNS: Stable. She is afebrile. GENERAL: A very cachectic elderly female, in no acute distress upon exam. HEENT: Normocephalic and atraumatic. Mucosa moist. NECK: Supple. No lymphadenopathy. LUNGS: Clear in the upper franco. No wheezing or rales. HEART: Regular rate and rhythm. She does have a holosystolic murmur. ABDOMEN: Soft, benign, and nondistended. Positive bowel sounds times 4. EXTREMITIES: No clubbing, cyanosis or edema. NEUROLOGIC: She does have noted weakness in both of her legs with 2/5 muscular strength in her legs and skin changes consistent with peripheral vascular disease. LABORATORY DATA: White count of 7.7, H&H 10.4 and 32.5, and platelet count is 512. Sodium 141, potassium 3.9, BUN and creatinine of 14 and 0.4, and blood sugar is noted to be 95. ASSESSMENT: This is a 64-year-old female admitted to the rehab with a working diagnosis of disuse myopathy, complicated by atrial fib and long stay in the ICU. The patient has potential to make improvement. We will institute the following multidisciplinary therapies including, but not limited to, physical, occupational, respiratory, speech, nutritional services, prosthetics, and orthotics. Given her complex medical condition and risks for more complications, rehabilitation services cannot be provided at a lower level of care such as a skilled nurse facility. PLAN: 1. Admit to [facility] for an inpatient therapy to include the following disciplines; A. Physical therapy to improve gait, all transfer skills, and bed mobility to modified independent level. B. Occupational therapy to modified independent level. HISTORY AND PHYSICAL [id number] EVELIA TOBIAS C. Case management to assist with discharge planning and placement options. D. Nutrition to assist with nutritional needs. E. Rehabilitation nursing to assist in monitoring the patient's underlying medical conditions and to assist with any type of bowel or bladder management. 2. The patient's current medications and medical care will be continued. 3. The patient will be placed on standard fall precautions. 4. The patient's estimated length of stay is approximately 7-10 days. 5. We will discuss the patient during care team staff meeting this week. We will have her seen by nutrition during her stay and will hopefully get her feeling better. TRANSINT:[id number] Voice Confirmation ID: [id number] DOCUMENT ID: [id number] CLARK notes whether there has been none or any medical/functional change since admission: - No change since prescreen. CLARK attests patient continues to be appropriate for IRF: - Continues to be appropriate. HERMES PIERRE MD at [id number] CC: [id number] DICTATION DATE: 08/30/1943 SWIMMING POOL PLASTERER HELPER: 08/30/1947 DIS IN 08/31/19 [facility] [address] [place] [address]
== END 2019-08-31 13:25 | disposition home or self-care (01) | DRG 91 ==
LOC: D.REHAB 14:23
PROVIDERS: ADMIT Emergency Medicine; ATTEND Emergency Medicine
DX: G72.89 Other specified myopathies (principal); E43 Unspecified severe protein-calorie malnutrition; J96.90 Respiratory failure, unspecified, unspecified whether with hypoxia or hypercapnia; K56.609 Unspecified intestinal obstruction, unspecified as to partial versus complete obstruction; F17.200 Nicotine dependence, unspecified, uncomplicated; I73.9 Peripheral vascular disease, unspecified; I10 Essential (primary) hypertension; I48.91 Unspecified atrial fibrillation; F41.9 Anxiety disorder, unspecified; R00.0 Tachycardia, unspecified; D64.9 Anemia, unspecified